=== PATIENT | female | born 1965 | race Caucasian/White ===

== ENCOUNTER 2017-01-27 03:46 | Emergency (ER) | payer OTHER ==
[~2017-01-27] VITALS: Ht 152.4 cm; Wt 66.0 kg
[2017-01-27 03:52] VITALS: Ht 152.4 cm; Wt 66.0 kg
[2017-01-27] MEDS ORDERED: KETOROLAC 30 MG INJ IM STA (04:07)
--- NOTE | 2017-01-27 04:31 | ERD ---
ER Documentation Chief Complaint Date/Time DATE: 01/27/17 TIME: 04:26 Chief Complaint right arm pain x 3 days. denies injury, seen by pmd for yesterday for same HPI 51 yo female comes in with right anterior shoulder pain for the past 3 days. She has diffuse pain that goes to the back of the shoulder, achy. She states she is right handed, but denies trauma. She has not had fever. No nausea, vomiting or abdominal pain. ROS All systems reviewed and are negative except as per history of present illness. Medications Home Meds Active Scripts Naproxen* (Naprosyn*) 500 Mg Tablet, 500 MG PO BID Y for PAIN AND/OR INFLAMMATION, #30 TAB Prov:STEVEN GUTHRIE PA-C 01/27/17 Allergies Allergies: Coded Allergies: Penicillins (Verified Allergy, Unknown, rash, 01/27/17) PMhx/Soc Medical and Surgical Hx: pt denies Medical Hx, pt denies Surgical Hx History of Surgery: No Anesthesia Reaction: No Hx Neurological Disorder: No Hx Respiratory Disorders: No Hx Cardiac Disorders: No Hx Psychiatric Problems: No Hx Miscellaneous Medical Probl: No Hx Alcohol Use: No Hx Substance Use: No Hx Tobacco Use: No Smoking Status: Never smoker Physical Exam Vitals Vital Signs Date Time Temp Pulse Resp B/P Pulse Ox O2 Delivery O2 Flow Rate FiO2 01/27/17 03:52 98.8 75 20 132/62 99 Physical Exam General: Well-developed, well-nourished. The patient appears in no acute distress. HEENT: Head is normocephalic, atraumatic. No scleral icterus. Neck: Supple. Nontender. Lungs: Clear to auscultation. Normal air movement. Heart: Regular rate and rhythm. S1 and S2 are normal. No murmurs, gallops, or rubs. Abdomen: Nondistended. Extremities: Right anterior shoulder pain w/ palpation over the AC joint, no bony deformities, limited abduction due to pain, no crepitus. No warmth or erythema. Neurologic: Alert and oriented 3. No focal deficits. Normal speech and gait. Skin: Normal turgor. No rash or lesions. Results 24 hrs Current Medications Medications (Trade) Dose Ordered Sig/Arthur Route PRN Reason Start Time Stop Time Status Last Admin Dose Admin Ketorolac Tromethamine (Toradol) 30 mg ONCE STAT IM 01/27/17 04:07 01/27/17 04:09 DC 01/27/17 04:20 DIAGNOSTIC IMAGING REPORT Patient: GABRIEL LIND : 1965 Age: 51 Sex: F [id number] DOS: 01/27/17 0407 Ordering MD: STEVEN GUTHRIE PA-C Location: [facility] Room/Bed: PROCEDURE: RIGHT SHOULDER CLINICAL INDICATION: 51-year-old female with right arm pain. TECHNIQUE: Two-views of the right shoulder were obtained. The images reviewed on a PACS workstation. COMPARISON: None. FINDINGS: No evidence of fracture or dislocation is seen. The glenohumeral and acromioclavicular joint spaces are intact. There is minimal calcification identified adjacent to the superior aspect of the right anterolateral humeral head suggestive of calcific tendonitis. Limited views of the clavicle and thorax are within normal limits. IMPRESSION: 1. No acute fracture or dislocation. 2. Calcific tendonitis. .Silas Lombardi MD MD Date Time Electronically viewed and signed by .Silas Lombardi MD, MD on 01/27/2017 05:21 .M/ CC: STEVEN GUTHRIE PA-C Procedures/MDM ED course: Patient's right shoulder was placed in a sling for comfort, she was given Toradol 30 mg IM. Reassessment: Patient's pain was reassessed, she states that she is feeling much better at this time. Medical decision making: This is a 51-year-old female comes emergency department with right shoulder pain. Differential diagnosis includes rotator cuff tendinitis, calcific tendinitis, frozen shoulder, fracture, dislocation, septic arthritis. Patient's x-ray of the shoulder shows calcium that is suggestive of calcific tendinitis. There is no evidence of fracture dislocation , signs of DVT, or infectious origin. Patient's blood pressure was elevated (>120/80) but appears stable without evidence of hypertension emergency or urgency. The patient was counseled about the risks of hypertension and urged to pursue outpatient monitoring and therapy within a week with their primary care physician. Departure Diagnosis: Primary Impression: Calcific tendonitis Condition: Good STEVEN GUTHRIE PA-C Jan 27, 2017 04:31
--- NOTE | 2017-01-27 05:21 | RADRPT ---
PROCEDURE: RIGHT SHOULDER CLINICAL INDICATION: 51-year-old female with right arm pain. TECHNIQUE: Two-views of the right shoulder were obtained. The images reviewed on a PACS workstatio n. COMPARISON: None. FINDINGS: No evidence of fracture or dislocation is seen. The glenohumeral and acromioclavicular joint spaces are intact. There is minimal calcification identified adjacent to the superior aspect of the right anterolateral humeral head suggestive of calcific tendonitis. Limited views of the clavicle and thor ax are within normal limits. IMPRESSION: 1. No acute fracture or dislocation. 2. Calcific tendonitis. .Silas Lombardi MD, MD Date Time Electronically viewed and signed by .Silas Lombardi MD, on 01/27/2017 05:21 .[place]
[2017-01-27] MEDS ORDERED: NAPR-260 PO (05:28)
[2017-01-27 05:35] VITALS: BP 107/57; PULSE 72; RESP 17; TEMP 98.5
== END 2017-01-27 05:35 | disposition home or self-care (01) ==
LOC: FTE 03:46
DX: M75.31 Calcific tendinitis of right shoulder (principal)
CPT/HCPCS: 73030; 96372; 99284; J1885

== ENCOUNTER 2017-02-23 14:26 | Emergency (ER) | payer OTHER ==
[~2017-02-23] VITALS: Wt 66.8 kg
[~2017-02-23 14:26] MED LIST: NAPR-260 PO
[2017-02-23] MEDS ORDERED: morphine 4 MG/ML VIAL IV STA (17:14)
[2017-02-23] MEDS ORDERED: SOD CHLORIDE 0.9% 1,000 ML IV STA (17:14)
[2017-02-23] MEDS ORDERED: ONDANSETRON 4 MG INJ IV STA (17:14)
[2017-02-23 17:50] LABS: ADD SCAN DIFF NO
[2017-02-23 17:54] LABS: BASOPHILS % 0.5 % (0.0-2.0); EOSINOPHILS # 0.1 10^3/ul (0.0-0.5); EOSINOPHILS % 0.7 % (0.0-7.0); HEMATOCRIT 34.3 % (37.0-47.0); LYMPHOCYTES # 1.7 10^3/ul (0.8-2.9); LYMPHOCYTES % 20.6 % (15.0-51.0); MEAN CORPUSCULAR HEMOGLOBIN 26.8 pg (29.0-33.0); MEAN CORPUSCULAR HGB CONC 32.1 g/dl (32.0-37.0); MEAN CORPUSCULAR VOLUME 83.5 fl (82.0-101.0); MEAN PLATELET VOLUME 11.7 fl (7.4-10.4); MONOCYTE # 0.7 10^3/ul (0.3-0.9); MONOCYTES % 8.4 % (0.0-11.0); NEUTROPHIL # 5.6 10^3/ul (1.6-7.5); NEUTROPHILS % 69.6 % (39.0-77.0); PLATELET COUNT 170 10^3/UL (140-415); RED BLOOD COUNT 4.11 10^6/ul (4.20-5.40); RED CELL DISTRIBUTION WIDTH 15.8 % (11.5-14.5); WHITE BLOOD COUNT 8.1 10^3/ul (4.8-10.8)
[2017-02-23 18:16] LABS: INR 0.94; PROTIME 12.6 Sec (12.2-14.2)
[2017-02-23 18:17] LABS: PARTIAL THROMBOPLASTIN TIME 27.5 Sec (25.0-35.0)
[2017-02-23 18:21] LABS: ALANINE AMINOTRANSFERASE 16 IU/L (13-69); ALBUMIN 4.3 g/dl (3.3-4.9); ALBUMIN/GLOBULIN RATIO 1.26; ALKALINE PHOSPHATASE 73 IU/L (42-121); AMYLASE 75 U/L (11-123); ANION GAP 20 (8-16); ASPARTATE AMINO TRANSFERASE 22 IU/L (15-46); BILIRUBIN,INDIRECT 0.3 mg/dl (0-1.1); BILIRUBIN,TOTAL 0.3 mg/dl (0.2-1.3); BLOOD UREA NITROGEN 8 mg/dl (7-20); CALCIUM 9.6 mg/dl (8.4-10.2); CARBON DIOXIDE 25 mmol/L (21-31); CHLORIDE 100 mmol/L (97-110); CREATININE 0.57 mg/dl (0.44-1.00); GLUCOSE 79 mg/dl (70-220); SODIUM 141 mmol/L (135-144); TOTAL PROTEIN 7.7 g/dl (6.1-8.1)
[2017-02-23 18:31] LABS: TROPONIN-I < 0.012 ng/ml (0.00-0.12)
[2017-02-23] MEDS ORDERED: IOHEXOL 300MG/ML 150 ML BTL ONE (18:52)
[2017-02-23] MEDS ORDERED: SOD CHLORIDE 0.9% 100 ML ONE (18:52)
[2017-02-23 19:21] LABS: ADD UMIC NO; UR ASCORBIC ACID NEGATIVE (NEGATIVE); UR BILIRUBIN (Dip) NEGATIVE (NEGATIVE); UR BLOOD (Dip) NEGATIVE (NEGATIVE); UR CLARITY CLEAR (CLEAR); UR COLOR STRAW (YELLOW); UR GLUCOSE (Dip) NEGATIVE (NEGATIVE); UR KETONES (Dip) 1+ mg/dL (NEGATIVE); UR LEUKOCYTE ESTERASE (Dip) NEGATIVE Leu/ul (NEGATIVE); UR NITRITE (Dip) NEGATIVE (NEGATIVE); UR SPECIFIC GRAVITY (Dip) 1.003 (1.003-1.030); UR TOTAL PROTEIN (Dip) NEGATIVE (NEGATIVE); UR UROBILINOGEN (Dip) NEGATIVE (NEGATIVE)
[2017-02-23] MEDS ORDERED: KETOROLAC 30 MG INJ IV STA (19:58)
--- NOTE | 2017-02-23 20:23 | RADRPT ---
PROCEDURE: CT scan of the abdomen and pelvis with IV contrast. CLINICAL INDICATION: Abdominal pain. TECHNIQUE: Thin section axial, coronal and sagittal images were performed through the abdomen and pelvis following uncomplicated intravenous administration of 90 ccs of Omnipaque-300 contrast. Image s were performed on a [employer] scanner. Radiation Dose: CTDI: 10.1 and DLP: 505 One or more of the following dose reduction techniques were used: - Automated exposure control. - Adjustment of the mA and/or kV according to patient size. Use of iterative reconstruction technique. COMPARISON: No. FINDINGS: Soft tissues: Lungs and pleural spaces: The pulmonary vasculature and lung basurto are normal. No pleural effusion is noted. Heart: Normal. The liver, common bile duct and gallbladder: There are small cysts in the left lobe of the liver. T he largest measured just over 1 cm. The gallbladder and gallbladder wall are normal. There are sma ll cyst in the dome of the right lobe of the liver. Gastrointestinal: No hiatal hernia is identified. The stomach is unremarkable. There is diastasis r ectus with a small midline umbilical hernia containing fat. There is fat bulging into the right lef t inguinal canals but no intra-abdominal. The colon vermiform appendix are normal. Pancreas: A pancreatic pseudocyst arises from the midbody of the ventral pancreas measuring 4.9 x 3. 8 by 4.6 cm. Kidneys, bladder and adrenal glands : Normal. There are phleboliths adjacent to the urinary bladder. No obstructing ureterolith or nephrolith is noted. Spleen: Normal. Lymph nodes: Normal. Reproductive system and pelvis : The uterus is enlarged. There is a broad-based subserosal leiomyom a measuring up to 2.6 cm arising off the dorsal right fundus of the uterus. There is an additional 2.9 cm subserosal myoma leiomyoma arising from the ventral lower fundus. Endometrial thickness is 6 .8 mm. A 1.4 x 1.8 cm benign right ovarian cyst is identified. A 1.9 cm benign left ovarian cyst i s identified. Trace fluid is suspected in the cul-de-sac. No abnormal adnexal mass is noted. Bony elements: There are small degenerative osteophytes in the lower thoracic and lumbar spine. No acute bony fracture or bone metastasis is identified. Vasculature: Normal. IMPRESSION: 1. Normal vermiform appendix. No evidence of diverticulosis or diverticulitis. No obstructing ure terolith or nephrolith is identified. 2. Leiomyomata are identified in the uterus. 3. Trace fluid in the cul-de-sac. 4. 4.9 x 3.8 x 4.6 cm pancreatic pseudocyst. 5. 1.8 cm right benign ovarian cyst. 1.9 cm benign left ovarian cyst. RPTAT:AAJJ Physician Jose Date Time Electronically viewed and signed by Louis Sanford Physician on 02/23/2017 20:23 YOHAN/
--- NOTE | 2017-02-23 20:32 | ERD ---
ER Documentation Chief Complaint Date/Time DATE: 02/23/17 TIME: 20:23 Chief Complaint sent by pmd for burning lower abd pain, also rue pain HPI This is a very pleasant 51-year-old female with a known history of iron deficiency anemia secondary to menses, right cervical radiculitis and a colonoscopy that was performed in 2015 indicated the patient had hemorrhoids. The patient presents to the emergency department today after being seen by her primary care physician complaining of severe left lower quadrant pain for the past month but progressively worsening over the past week. She needed the pain initially was intermittent and a dull achy sensation. However over the past 7 days it has been a persistent severe sharp pain that does not radiate to the back. She has not complained of any frequency urgency or dysuria. She states there is no alleviating or exacerbating factors of the pain. She is not experiencing any hemoptysis hematemesis or melanotic stools. The pain is 8 out of 10 in intensity. Indicates she has never had any similar pain in the past. She does also state for 3 weeks she has been experiencing epigastric burning pain that is exacerbated several minutes after she eats meals. She is scheduled to have an upper endoscopy performed by Dr. Urbina on March 22, 2017. She also indicates abdominal bloating intermittently which will spontaneously resolve. ROS All systems reviewed and are negative except as per history of present illness. Medications Home Meds Discontinued Scripts Naproxen* (Naprosyn*) 500 Mg Tablet, 500 MG PO BID Y for PAIN AND/OR INFLAMMATION, #30 TAB Prov:STEVEN GUTHRIE PA-C 01/27/17 Allergies Allergies: Coded Allergies: Penicillins (Verified Allergy, Unknown, rash, 02/23/17) PMhx/Soc History of Surgery: No Anesthesia Reaction: No Hx Neurological Disorder: No Hx Respiratory Disorders: No Hx Cardiac Disorders: No Hx Psychiatric Problems: No Hx Miscellaneous Medical Probl: No Hx Alcohol Use: No Hx Substance Use: No Hx Tobacco Use: No Smoking Status: Never smoker Physical Exam Vitals Vital Signs Date Time Temp Pulse Resp B/P Pulse Ox O2 Delivery O2 Flow Rate FiO2 02/23/17 18:51 97.8 53 16 134/65 97 Room Air 02/23/17 17:50 98.3 65 20 104/61 98 Room Air 02/23/17 14:28 97.8 76 20 119/63 100 Physical Exam Constitutional:Well-developed. Well-nourished. HEENT:Normocephalic. Atraumatic.Pupils were equal round reactive to light. Moist mucous membranes.No tonsillar exudates. Neck: No nuchal rigidity. No lymphadenopathy. No posterior cervical spine tenderness or step-offs. Respiratory: Not using accessory muscles of respiration.Lungs were clear to auscultation bilaterally. No rhonchi. No rales. No wheezing. Cardiovascular: Regular rate regular rhythm.No murmurs. No rubs were appreciated.S1, S2 normal. Distal pulses are palpable 2+ bilaterally. GI: Abdomen was soft. Left lower quadrant tender. Non Distended. No pulsatile abdominal masses or bruits. No rebound. No guarding. Bowel sounds were present and normal. No fluid thrill or tense ascites. Muscle skeletal: Full range of motion of both the upper and lower extremities bilaterally.Normal muscle tone.No assymetrical calf tenderness or swelling. Skin: No petechia, no purpura. No lesions on the palms or the soles of the feet. No maculopapular rash. NEURO: Patient was alert, awake, orientated x3.No facial droop. Gait observed and normal with no ataxia.Speech had regular rate and rhythm. No focal neurological deficits. Result Diagram: 02/23/17 1740 02/23/17 1740 Results 24 hrs Laboratory Tests Test 02/23/17 17:40 02/23/17 18:15 White Blood Count 8.110^3/ul Red Blood Count 4.1110^6/ul Hemoglobin 11.0g/dl Hematocrit 34.3% Mean Corpuscular Volume 83.5fl Mean Corpuscular Hemoglobin 26.8pg Mean Corpuscular Hemoglobin Concent 32.1g/dl Red Cell Distribution Width 15.8% Platelet Count 30528^3/UL Mean Platelet Volume 11.7fl Neutrophils % 69.6% Lymphocytes % 20.6% Monocytes % 8.4% Eosinophils % 0.7% Basophils % 0.5% Neutrophils # 5.610^3/ul Lymphocytes # 1.710^3/ul Monocytes # 0.710^3/ul Eosinophils # 0.110^3/ul Basophils # 0.010^3/ul Nucleated Red Blood Cells # 0.010^3/ul Prothrombin Time 12.6Sec Prothrombin Time Ratio 1.0 INR International Normalized Ratio 0.94 Activated Partial Thromboplast Time 27.5Sec Sodium Level 141mmol/L Potassium Level 4.0mmol/L Chloride Level 100mmol/L Carbon Dioxide Level 25mmol/L Anion Gap 20 Blood Urea Nitrogen 8mg/dl Creatinine 0.57mg/dl Glucose Level 79mg/dl Calcium Level 9.6mg/dl Total Bilirubin 0.3mg/dl Direct Bilirubin 0.00mg/dl Indirect Bilirubin 0.3mg/dl Aspartate Amino Transf (AST/SGOT) 22IU/L Alanine Aminotransferase (ALT/SGPT) 16IU/L Alkaline Phosphatase 73IU/L Troponin I < 0.012ng/ml Total Protein 7.7g/dl Albumin 4.3g/dl Globulin 3.40g/dl Albumin/Globulin Ratio 1.26 Amylase Level 75U/L Lipase 63U/L Urine Color STRAW Urine Clarity CLEAR Urine pH 6.0 Urine Specific [place] 1.003 Urine Ketones 1+mg/dL Urine Nitrite NEGATIVEmg/dL Urine Bilirubin NEGATIVEmg/dL Urine Urobilinogen NEGATIVEmg/dL Urine Leukocyte Esterase NEGATIVELeu/ul Urine Hemoglobin NEGATIVEmg/dL Urine Glucose NEGATIVEmg/dL Urine Total Protein NEGATIVEmg/dl Current Medications Medications (Trade) Dose Ordered Sig/Arthur Route PRN Reason Start Time Stop Time Status Last Admin Dose Admin Sodium Chloride (NS) 1,000 ml @ 1,000 mls/hr Q1H STAT IV 02/23/17 17:14 02/23/17 18:13 DC 02/23/17 18:30 Morphine Sulfate (morphine) 4 mg ONCE STAT IV 02/23/17 17:14 02/23/17 17:17 DC 02/23/17 18:30 Ondansetron HCl (Zofran Inj) 4 mg ONCE STAT IV 02/23/17 17:14 02/23/17 17:17 DC 02/23/17 18:30 IV Flush 10 ml 10 ml STK-MED ONCE .ROUTE 02/23/17 18:52 02/23/17 18:53 DC 02/23/17 19:11 Sodium Chloride (NS) 100 ml @ ud STK-MED ONCE .ROUTE 02/23/17 18:52 02/23/17 18:53 DC 02/23/17 19:11 Iohexol (Omnipaque 300mg/ ml) 150 ml STK-MED ONCE .ROUTE 02/23/17 18:52 02/23/17 18:53 DC 02/23/17 19:11 Ketorolac Tromethamine (Toradol) 30 mg ONCE STAT IV 02/23/17 19:58 02/23/17 20:01 DC 02/23/17 20:20 Procedures/MDM This patient presented to the emergency department with abdominal pain and was seen and evaluated by myself. My differential diagnosis included but was not limited to abdominal aortic aneurysm, appendicitis, pancreatitis, perforated peptic ulcer, perforated viscus, Boerhaaves syndrome or visceral pain such as diverticulitis, DKA, esophagitis, hepatitis or bowel obstruction. The patient was placed on a plastics process hand, continuous pulse oximetry, and IV access was established by nursing staff. The patient received intravenous morphine and Zofran for analgesic control I obtained a 12-lead EKG tracing to rule out for atypical myocardial infarction given that she epigastric pain. Sinus bradycardia 50 bpm and no arrhythmia. WA interval normal. QRS duration normal. No ST segment elevation No ST segment depression. No changes consistent with acute ischemia. There is no evidence of urinary tract infection. The patient also received a GI cocktail she did appear to have epigastric discomfort that could be result of peptic ulcer disease. As stated in history of present illness she will be undergoing an upper endoscopy. However given that the patient had pain in the left lower quadrant I did feel is necessary to obtain a CT scan of the abdomen. This was reviewed by both myself and the radiologist and indicated the followin. Normal vermiform appendix. No evidence of diverticulosis or diverticulitis. No obstructing ureterolith or nephrolith is identified. 2. Leiomyomata are identified in the uterus. 3. Trace fluid in the cul-de-sac. 4. 4.9 x 3.8 x 4.6 cm pancreatic pseudocyst. 5. 1.8 cm right benign ovarian cyst. 1.9 cm benign left ovarian cyst. These findings were relayed to the patient I did feel she would benefit from following up with her PCP as well as her [facility] for further evaluation. The patient was discharged home in fair condition. They were instructed to return to the emergency department at any time if there was any worsening of their condition. The patient stated they would follow up with their PCP in the next 24 -48 hours to initiate a suitable medication regimen under the care of their PCP as well as to allow their PCP to monitor any drug reactions. The patient was discharged home with prescriptions after they gave informed consent to the new medication. They were also fully informed by myself on the adverse effects and adverse drug interactions in order to provide adequate safeguards to prevent possible adverse reactions to medications. Departure Diagnosis: Primary Impression: Abdominal pain Abdominal location: left lower quadrant Qualified Code: R10.32 - Left lower quadrant pain Condition: Fair JOSELITO GUARDADO Feb 23, 2017 20:32
[2017-02-23] MEDS ORDERED: LIDOCAINE/MYLANTA 40 ML BTL PO STA (20:33)
[2017-02-23] MEDS ORDERED: BELLADONNA/PHENOBARBITAL TAB PO STA (20:33)
[2017-02-23] MEDS ORDERED: HYDR-906 PO (20:33)
[2017-02-23 20:54] VITALS: BP 130/60; PULSE 59; RESP 16; TEMP 98.9
== END 2017-02-23 20:55 | disposition home or self-care (01) ==
LOC: E/R 14:26
DX: R10.32 Left lower quadrant pain (principal); R40.2142 Coma scale, eyes open, spontaneous, at arrival to emergency department; R40.2252 Coma scale, best verbal response, oriented, at arrival to emergency department; R40.2362 Coma scale, best motor response, obeys commands, at arrival to emergency department
CPT/HCPCS: 74177; 80053; 81003; 82150; 83690; 84484; 85025; 85610; 85730; 93005; 96361; 96374; 96375; 99285; J1885; J2270; J2405; J7030; Q9967

== ENCOUNTER 2017-07-27 16:16 | Emergency (ER) | payer OTHER ==
[~2017-07-27] VITALS: Wt 65.3 kg
[~2017-07-27 16:16] MED LIST changes: +HYDR-906 PO; -NAPR-260 PO
[2017-07-27] MEDS ORDERED: SOD CHLORIDE 0.9% 1,000 ML IV STA (18:26)
--- NOTE | 2017-07-27 18:47 | ERD ---
ER Documentation Chief Complaint Chief Complaint PALPITATIONS X2DAYS SENT BY PMD OSKAR This is a very pleasant 51-year-old female with no past medical history that presents to the emergency department complaining of intermittent palpitations for the past 48 hours. She states she had no associated symptoms of chest pain or pressure that radiated to the neck arm back or jaw. She had no fevers or shaking or chills. She denies any paresthesias. She denies any weakness of her upper or lower extremities. She did indicate at the onset of her palpitations she felt slightly lightheaded and dizzy which lasted for several seconds and then spontaneously resolved. She went to her primary care physician today who instructed her to come to the emergency department to be further evaluated. She does not smoke tobacco and has no family history of coronary artery disease in her first-degree relatives. She has no recent travel or prolonged immobilization and denies any shortness of breath. She denies a headache changes in vision and no neck pain. He states that the palpitations are intermittent with no alleviating or exacerbating factors. The last for several seconds and then spontaneously resolved. She denies any excessive caffeine use and states she has never had any similar symptoms in the past per ROS All systems reviewed and are negative except as per history of present illness. Medications Home Meds Active Scripts Hydrocodone/Acetaminophen ([place] 5-325 Tablet) 1 Each Tablet, 1 TAB PO Q6H Y for PAIN, #20 TAB Prov:GEORICKJOSELITO 02/23/17 Allergies Allergies: Coded Allergies: Penicillins (Verified Allergy, Unknown, rash, 02/23/17) PMhx/Soc History of Surgery: No Anesthesia Reaction: No Hx Neurological Disorder: No Hx Respiratory Disorders: No Hx Cardiac Disorders: No Hx Psychiatric Problems: No Hx Miscellaneous Medical Probl: No Hx Alcohol Use: No Hx Substance Use: No Hx Tobacco Use: No Physical Exam Vitals Vital Signs Date Time Temp Pulse Resp B/P Pulse Ox O2 Delivery O2 Flow Rate FiO2 07/27/17 16:29 97.9 72 20 139/67 100 Physical Exam Constitutional:Well-developed. Well-nourished. HEENT:Normocephalic. Atraumatic.Pupils were equal round reactive to light. Dry mucous membranes.No tonsillar exudates. Neck: No nuchal rigidity. No lymphadenopathy. No posterior cervical spine tenderness or step-offs. Respiratory: Not using accessory muscles of respiration.Lungs were clear to auscultation bilaterally. No rhonchi. No rales. No wheezing. Cardiovascular: Regular rate regular rhythm.No murmurs. No rubs were appreciated.S1, S2 normal. Distal pulses are palpable 2+ bilaterally. GI: Abdomen was soft. Nontender. Non Distended. No pulsatile abdominal masses or bruits. No rebound. No guarding. Bowel sounds were present and normal. Muscle skeletal: Full range of motion of both the upper and lower extremities bilaterally.Normal muscle tone.No assymetrical calf tenderness or swelling. Skin: No petechia, no purpura. No lesions on the palms or the soles of the feet. No maculopapular rash. NEURO: Patient was alert, awake, orientated x3.No facial droop. Gait observed and normal with no ataxia.Speech had regular rate and rhythm. No focal neurological deficits. Results 24 hrs Current Medications Medications (Trade) Dose Ordered Sig/Arthur Route PRN Reason Start Time Stop Time Status Last Admin Dose Admin Sodium Chloride (NS) 1,000 ml @ 1,000 mls/hr Q1H STAT IV 07/27/17 18:26 07/27/17 19:25 Procedures/MDM The patient presented to the emergency department with palpitations. My clinical evaluation and workup was to distinguish minor causes of chest pain from acute life threatening conditions such as myocardial infarction, pulmonary embolism, aortic dissection, esophageal rupture, cardiac tamponade. The patient was placed on a supervisor carding and continuous pulse oximetry. IV access established by nursing staff. Patient did have mild clinical dehydration and was given a liter bolus of 0.9 normal saline. 12 Lead EKG tracing ordered and reviewed by myself showed: Normal sinus rhythm of 67 bpm and no arrhythmia. MI interval normal. QRS duration normal. No ST segment elevation No ST segment depression. No changes consistent with acute ischemia. The patient's thyroid panel was normal and there is no evidence of an infectious process. I indicated to the patient that I did not feel her palpitations were result of acute life-threatening etiology and that she can follow-up on an outpatient basis as there is no evidence of myocardial ischemia or arrhythmia seen on a supervisor carding or EKG. The patient was discharged home in fair condition. They were instructed to return to the emergency department at any time if there was any worsening of their condition. The patient stated they would follow up with their PCP in the next 24-48 hours to initiate a suitable medication regimen under the care of their PCP as well as to allow their PCP to monitor any drug reactions. The patient was discharged home with prescriptions after they gave informed consent to the new medication. They were also fully informed by myself on the adverse effects and adverse drug interactions in order to provide adequate safeguards to prevent possible adverse reactions to medications. Departure Diagnosis: Primary Impression: Palpitations Condition: JOSELITO Jones Jul 27, 2017 18:46
--- NOTE | 2017-07-27 19:05 | RADRPT ---
PROCEDURE: Portable chest x-ray. CLINICAL INDICATION: Altered mental status. TECHNIQUE: Portable AP view of the chest. COMPARISON: None. FINDINGS: No pulmonary edema or conolidation is identified. The cardiac silhouette is magnified. No pleural effusion is seen. There is no pneumothorax. IMPRESSION: 1. No evidence of acute cardiopulmonary disease. RPTAT: HTAR .Rick Ruth MD, MD Date Time Electronically viewed and signed by .Rick Ruth MD, on 07/27/2017 19:04 .R/
[2017-07-27 19:18] VITALS: BP 113/72; PULSE 64; RESP 13; TEMP 97.9
[2017-07-27 19:27] LABS: BASOPHILS % 0.6 % (0.0-2.0); EOSINOPHILS # 0.1 10^3/ul (0.0-0.5); EOSINOPHILS % 0.9 % (0.0-7.0); HEMATOCRIT 35.5 % (37.0-47.0); HEMOGLOBIN 11.5 g/dl (12.0-16.0); LYMPHOCYTES # 1.7 10^3/ul (0.8-2.9); LYMPHOCYTES % 25.9 % (15.0-51.0); MEAN CORPUSCULAR HEMOGLOBIN 25.6 pg (29.0-33.0); MEAN CORPUSCULAR HGB CONC 32.4 g/dl (32.0-37.0); MEAN CORPUSCULAR VOLUME 78.9 fl (82.0-101.0); MONOCYTE # 0.5 10^3/ul (0.3-0.9); MONOCYTES % 7.2 % (0.0-11.0); NEUTROPHIL # 4.3 10^3/ul (1.6-7.5); NEUTROPHILS % 65.1 % (39.0-77.0); PLATELET COUNT 227 10^3/UL (140-415); RED CELL DISTRIBUTION WIDTH 15.9 % (11.5-14.5); WHITE BLOOD COUNT 6.5 10^3/ul (4.8-10.8)
[2017-07-27] MEDS ORDERED: PANT40TA4 PO (19:46)
[2017-07-27 19:58] LABS: INR 0.9; PROTIME 12.2 Sec (11.9-14.9)
[2017-07-27 19:59] LABS: ALANINE AMINOTRANSFERASE 29 IU/L (13-69); ALBUMIN 4.5 g/dl (3.3-4.9); ALBUMIN/GLOBULIN RATIO 1.15; ALKALINE PHOSPHATASE 84 IU/L (42-121); ANION GAP 15 (8-16); ASPARTATE AMINO TRANSFERASE 31 IU/L (15-46); BILIRUBIN,INDIRECT 0.3 mg/dl (0-1.1); BILIRUBIN,TOTAL 0.3 mg/dl (0.2-1.3); BLOOD UREA NITROGEN 9 mg/dl (7-20); CALCIUM 9.6 mg/dl (8.4-10.2); CARBON DIOXIDE 26 mmol/L (21-31); CHLORIDE 103 mmol/L (97-110); CREATINE KINASE 73 IU/L (23-200); CREATININE 0.63 mg/dl (0.44-1.00); GLUCOSE 88 mg/dl (70-220); POTASSIUM 4.3 mmol/L (3.5-5.1); SODIUM 140 mmol/L (135-144); TOTAL PROTEIN 8.4 g/dl (6.1-8.1)
[2017-07-27 20:04] LABS: PARTIAL THROMBOPLASTIN TIME 28.8 Sec (25.0-35.0)
[2017-07-27 20:10] LABS: CK-MB 0.35 ng/ml (0.0-2.4)
[2017-07-27 20:11] LABS: TROPONIN-I < 0.012 ng/ml (0.00-0.12)
[2017-07-27] MEDS ORDERED: BELLADONNA/PHENOBARBITAL TAB PO STA (20:22)
[2017-07-27] MEDS ORDERED: LIDOCAINE/MYLANTA 40 ML BTL PO STA (20:22)
== END 2017-07-27 20:30 | disposition home or self-care (01) ==
LOC: E/R 16:16
DX: R00.2 Palpitations (principal); R07.9 Chest pain, unspecified
CPT/HCPCS: 71010; 80053; 82550; 82553; 84436; 84479; 84484; 85025; 85610; 85730; 99285; J7030